=== PATIENT | female | born 1955 | race Caucasian/White ===

== ENCOUNTER 2019-07-06 12:53 | Outpatient (CLI) | payer MEDICARE, MEDICAID | END 2019-07-06 23:59 | disposition home or self-care (01) | LOC: CARD DIAG 12:53 | PROVIDERS: ATTEND Internal Medicine Cardiovascular Disease | DX: R07.9 Chest pain, unspecified (principal); R00.2 Palpitations; I10 Essential (primary) hypertension | CPT/HCPCS: 93306 ==

== ENCOUNTER 2020-07-18 12:27 | Emergency (ER) | payer MEDICARE, BC, OTHER ==
[~2020-07-18] VITALS: Ht 167.6 cm; Wt 65.9 kg
[2020-07-18 13:54] LABS: BASOPHILS % (AUTO) 0.8 % (0-1); EOSINOPHILS # (AUTO) 0.1 X10'3 (0-0.9); EOSINOPHILS % (AUTO) 1.7 % (0-6); HEMATOCRIT 38.3 % (35.0-45.0); HEMOGLOBIN 12.8 g/dl (12.0-16.0); LYMPHOCYTES # (AUTO) 1.4 X10'3 (1.1-4.8); LYMPHOCYTES % (AUTO) 37.8 % (21-51); MEAN CORPUSCULAR HGB CONC 33.4 g/dL (33.0-36.5); MEAN PLATELET VOLUME 7.7 FL (7.4-10.4); MONOCYTES # (AUTO) 0.2 X10'3 (0-0.9); MONOCYTES % (AUTO) 5.4 % (2-12); NEUTROPHILS % (AUTO) 54.3 % (42-75); PLATELET COUNT 221 X10'3 (140-440); RED BLOOD COUNT 4.25 X10'6 (4.20-5.60); RED CELL DISTRIBUTION WIDTH 13.1 % (11.5-14.5); WHITE BLOOD COUNT 3.8 X10'3 (4.5-11.0)
[2020-07-18 14:11] LABS: ALANINE AMINOTRANSFERASE 15 U/L (12-78); ALBUMIN/GLOBULIN RATIO 1.1 (1.1-1.5); ALKALINE PHOSPHATASE 93 IU/L (46-116); ANION GAP 8 (8-16); ASPARTATE AMINO TRANSFERASE 16 U/L (10-37); BILIRUBIN,TOTAL 0.4 MG/DL (0.1-1.0); BLOOD UREA NITROGEN 17 MG/DL (7-18); BUN/CREATININE RATIO 18.9 (6.6-38.0); CALCIUM 8.9 MG/DL (8.5-10.1); CHLORIDE 101 MMOL/L (99-107); GLUCOSE 91 MG/DL (70-104); POTASSIUM 4.3 MMOL/L (3.5-5.1); SODIUM 138 MMOL/L (135-145); TOTAL CARBON DIOXIDE 29.1 MMOL/L (24-32); TOTAL PROTEIN 7.5 G/DL (6.4-8.2); eGFR 63 ML/MIN
--- NOTE | 2020-07-18 16:07 | NUR ---
PT TO CT VIA WHEELCHAIR WITH [employer]POR[employer] PILOT
[2020-07-18 16:57] VITALS: BP 119/81
== END 2020-07-18 16:59 | disposition home or self-care (01) ==
LOC: ER 12:29
DX: R55 Syncope and collapse (principal); R53.1 Weakness; G89.29 Other chronic pain; Z98.51 Tubal ligation status; Z98.890 Other specified postprocedural states
CPT/HCPCS: 36415; 70450; 71045; 80053; 83880; 84484; 85025; 93005; 99285

== ENCOUNTER 2020-08-19 06:59 | Day surgery (SDC) | payer MEDICARE, BC, OTHER ==
[~2020-08-19] VITALS: Ht 167.6 cm; Wt 66.5 kg
[2020-08-19] VITALS (16 sets, daily range): BP systolic 108–142; BP diastolic 56–80
[2020-08-19] MEDS ORDERED: HYDR-3964 PO (07:33)
[2020-08-19] MEDS ORDERED: METF-950 PO (07:33)
[2020-08-19] MEDS ORDERED: FLUO40CA PO (07:33)
[2020-08-19] MEDS ORDERED: FENO160T9 PO (07:33)
[2020-08-19] MEDS ORDERED: OMEP40CA13 PO (07:33)
[2020-08-19] MEDS ORDERED: TRAZ-256 PO (07:33)
[2020-08-19] MEDS ORDERED: METO-384 PO (07:33)
[2020-08-19] MEDS ORDERED: ALPR2TAB7 PO (07:33)
[2020-08-19] MEDS ORDERED: ceFAZolin 2gm in dextrose, iso 50 ML IV ONE ×2 (07:35→10:21)
[2020-08-19 07:45] LABS: BASOPHILS % (AUTO) 0.9 % (0-1); EOSINOPHILS # (AUTO) 0.1 X10'3 (0-0.9); EOSINOPHILS % (AUTO) 1.6 % (0-6); HEMATOCRIT 42.2 % (35.0-45.0); HEMOGLOBIN 13.9 g/dl (12.0-16.0); LYMPHOCYTES # (AUTO) 1.2 X10'3 (1.1-4.8); LYMPHOCYTES % (AUTO) 33.7 % (21-51); MEAN CORPUSCULAR HEMOGLOBIN 29.8 PG (27.0-31.0); MEAN CORPUSCULAR HGB CONC 33.1 g/dL (33.0-36.5); MONOCYTES # (AUTO) 0.3 X10'3 (0-0.9); MONOCYTES % (AUTO) 7.4 % (2-12); NEUTROPHILS % (AUTO) 56.4 % (42-75); PLATELET COUNT 207 X10'3 (140-440); RED BLOOD COUNT 4.68 X10'6 (4.20-5.60); RED CELL DISTRIBUTION WIDTH 13.5 % (11.5-14.5); WHITE BLOOD COUNT 3.5 X10'3 (4.5-11.0)
[2020-08-19 07:57] LABS: ANION GAP 9 (8-16); BLOOD UREA NITROGEN 19 MG/DL (7-18); BUN/CREATININE RATIO 24.7 (6.6-38.0); CHLORIDE 105 MMOL/L (99-107); CREATININE 0.77 MG/DL (0.40-0.90); GLUCOSE 90 MG/DL (70-104); POTASSIUM 4.3 MMOL/L (3.5-5.1); SODIUM 141 MMOL/L (135-145); TOTAL CARBON DIOXIDE 27.5 MMOL/L (24-32); eGFR 75 ML/MIN
[2020-08-19] MEDS ORDERED: fentaNYL/PF 50MCG/1 ML 2ML syringe ONE ×2 (10:20→11:54)
[2020-08-19] MEDS ORDERED: midazolam 2 mg/2 ml injection ONE ×2 (10:20→11:04)
[2020-08-19] MEDS ORDERED: LIDOcaine 1% W/epiNEPHrine 1:100,000 20ml vial ONE (10:21)
[2020-08-19] MEDS ORDERED: ceFAZolin 1000mg inj ONE (10:21)
[2020-08-19] MEDS ORDERED: HYDROcodone/acetaminophen 10/325mg tab PO PRN (12:45)
[2020-08-19] MEDS ORDERED: HYDROcodone/acetaminophen 5mg/325mg tablet PO PRN (12:45)
[2020-08-19] MEDS ORDERED: vancomycin/NS 1 GM ADD-VANTAGE 250 ML X 1 DOSE IV ONE (14:00)
--- NOTE | 2020-08-19 18:32 | NUR ---
Spoke with patient, she will return in AM for FU CXR.
== END 2020-08-19 17:00 | disposition home or self-care (01) ==
LOC: SSTAY O 06:59
PROVIDERS: ATTEND Internal Medicine Cardiovascular Disease
DX: I49.5 Sick sinus syndrome (principal); G47.33 Obstructive sleep apnea (adult) (pediatric); I10 Essential (primary) hypertension; E78.5 Hyperlipidemia, unspecified; Z79.899 Other long term (current) drug therapy; Z98.890 Other specified postprocedural states
CPT/HCPCS: 33208; 36415; 71046; 80048; 85025; 93005; 99152; 99153; C1785; C1894; C1898; J0690; J2250; J3010; J3370; A4565; A4620; A6449

== ENCOUNTER 2020-08-20 10:02 | Outpatient (CLI) | payer MEDICARE, BC ==
[~2020-08-20 10:02] MED LIST: ALPR2TAB7 PO; FENO160T9 PO; FLUO40CA PO; HYDR-3964 PO; METF-950 PO; METO-384 PO; OMEP40CA13 PO; TRAZ-256 PO
== END 2020-08-20 23:59 | disposition home or self-care (01) ==
LOC: RAD 10:02
PROVIDERS: ATTEND Internal Medicine Cardiovascular Disease
DX: J93.9 Pneumothorax, unspecified (principal)
CPT/HCPCS: 71046